=== PATIENT | female | born 1980 | race Caucasian/White ===

== ENCOUNTER 2016-04-28 15:06 | Emergency (ER) | payer OTHER ==
[~2016-04-28] VITALS: Ht 160 cm; Wt 99.8 kg
[~2016-04-28 15:06] MED LIST: CELE100C PO; CIPR500T94 PO; CYCL10TA2 PO; HYDR-2762 PO; HYDR-971 PO; METH4TAB2 PO; PREG75CA PO; PROAIR HFA8.5 GM IH; TRAM50TA PO
[2016-04-28] MEDS ORDERED: IV NORMAL SALINE 1000ML BAG 1,000 ML IV SCH (15:38)
[2016-04-28] MEDS ORDERED: ONDANSETRON PF 4 MG/2 ML VIAL. IV ONE (15:45)
[2016-04-28] MEDS ORDERED: FENTANYL PF 100 MCG/2 ML VIAL. IV ONE (15:45)
--- NOTE | 2016-04-28 15:45 | PHYS DOC ---
Past Medical History Past Medical History: Arthritis, Asthma, Fibromyalgia, Migraines Additional Past Medical Histor: INFLAMMATION OF CHEST [place],OSTEOARTHRITIS, LESIONS ON BRAIN, Occipital neur Past Surgical History: Cholecystectomy, Hysterectomy Alcohol Use: None Drug Use: None Adult General Chief Complaint Chief Complaint: NAUSEA/VOMITING/DIARRHA HPI HPI Patient is a 36 year old female that presents with fever, abdominal pain, n/v, low back pain since 0530 today. Denies urinary symptoms, cough, bodyaches, headache. Review of Systems Review of Systems Constitutional: Fever today Eyes: Denies change in visual acuity, redness, or eye pain HENT: Denies nasal congestion or sore throat Respiratory: Denies cough or shortness of breath Cardiovascular: No additional information not addressed in HPI GI: Abdominal pain, n/v/d today. No blood : Denies dysuria or hematuria Musculoskeletal: Denies or joint pain. Low back pain Integument: Denies rash or skin lesions Neurologic: Denies headache, focal weakness or sensory changes Endocrine: Denies polyuria or polydipsia [] Current Medications Current Medications Current Medications Medications (Trade) Dose Ordered Sig/Bill Start Time Stop Time Status Last Admin Dose Admin Acetaminophen (Tylenol) 650 mg 1X ONCE 04/28/16 18:45 04/28/16 18:46 DC 04/28/16 18:42 650 MG Fentanyl Citrate (Fentanyl 2ml Vial) 50 mcg 1X ONCE 04/28/16 15:45 04/28/16 15:46 DC 04/28/16 16:02 50 MCG Info (Do NOT chart on this entry -- for MONITORING) 1 each PRN DAILY PRN 04/28/16 16:15 04/28/16 19:09 DC Iohexol (Omnipaque 300 Mg/ml) 75 ml 1X ONCE 04/28/16 16:15 04/28/16 16:16 DC 04/28/16 16:17 75 ML Ondansetron HCl (Zofran) 4 mg 1X ONCE 04/28/16 15:45 04/28/16 15:46 DC 04/28/16 16:00 4 MG Sodium Chloride (Iv Sodium Chloride 0.9% 1000ml Bag) 1,000 ml @ 1,000 mls/hr Q1H 04/28/16 15:38 04/28/16 16:37 DC 04/28/16 15:56 1,000 MLS/HR Allergies Allergies Allergies Coded Allergies Type Severity Reaction Last Updated Verified erythromycin base Allergy Intermediate HIVES 04/10/15 Yes latex Allergy Intermediate SEE COMMENT 04/10/15 Yes talc Allergy Intermediate RED SPOTS 07/27/15 Yes ibuprofen Adverse Reaction Intermediate VOMITING 04/10/15 Yes meperidine Adverse Reaction Intermediate VOMITING 04/10/15 Yes morphine Adverse Reaction Intermediate VOMITING 04/10/15 Yes Physical Exam Physical Exam Constitutional: Well developed, well nourished, no acute distress, non-toxic appearance. HENT: Normocephalic, atraumatic, bilateral external ears normal, oropharynx moist, no oral exudates, nose normal. Eyes: PERRLA, EOMI, conjunctiva normal, no discharge. Neck: Normal range of motion, no tenderness, supple, no stridor. Cardiovascular:Heart rate regular rhythm, no murmur Lungs & Thorax: Bilateral breath sounds clear to auscultation Abdomen: Bowel sounds normal, soft, no masses, no pulsatile masses. Diffuse tenderness Skin: Warm, dry, no erythema, no rash. Back: Bilateral CVA tenderness Extremities: No tenderness, no cyanosis, no clubbing, ROM intact, no edema. Neurologic: Alert and oriented X 3, normal motor function, normal sensory function, no focal deficits noted. Psychologic: Affect normal, judgement normal, mood normal. [] Current Patient Data Vital Signs Vital Signs Date Time Temp Pulse Resp B/P Pulse Ox O2 Delivery O2 Flow Rate FiO2 04/28/16 18:16 101.0 101.0 04/28/16 18:15 112 16 122/61 93 Room Air Lab Values Laboratory Tests Test 04/28/16 15:35 04/28/16 16:10 04/28/16 17:00 White Blood Count 15.5x10^3/uL (4.0-11.0) H Red Blood Count 5.34x10^6/uL (3.50-5.40) Hemoglobin 14.8g/dL (12.0-15.5) Hematocrit 43.6% (36.0-47.0) Mean Corpuscular Volume 82fL (79-100) Mean Corpuscular Hemoglobin 28pg (25-35) Mean Corpuscular Hemoglobin Concent 34g/dL (31-37) Red Cell Distribution Width 14.1% (11.5-14.5) Platelet Count 276x10^3/uL (140-400) Neutrophils (%) (Auto) 88% (31-73) H Lymphocytes (%) (Auto) 6% (24-48) L Monocytes (%) (Auto) 5% (0-9) Eosinophils (%) (Auto) 0% (0-3) Basophils (%) (Auto) 0% (0-3) Neutrophils # (Auto) 13.6x10^3uL (1.8-7.7) H Lymphocytes # (Auto) 1.0x10^3/uL (1.0-4.8) Monocytes # (Auto) 0.8x10^3/uL (0.0-1.1) Eosinophils # (Auto) 0.0x10^3/uL (0.0-0.7) Basophils # (Auto) 0.1x10^3/uL (0.0-0.2) Segmented Neutrophils % 80% (35-66) H Band Neutrophils % 8% (0-9) Lymphocytes % 9% (24-48) L Monocytes % 3% (0-10) Toxic Granulation Slight Toxic Vacuolation Slight Platelet Estimate Adequate (ADEQUATE) Sodium Level 139mmol/L (136-145) Potassium Level 4.1mmol/L (3.5-5.1) Chloride Level 100mmol/L (98-107) Carbon Dioxide Level 29mmol/L (21-32) Anion Gap 10 (6-14) Blood Urea Nitrogen 11mg/dL (7-20) Creatinine 0.8mg/dL (0.6-1.0) Estimated GFR (Cockcroft-Gault) 80.3 BUN/Creatinine Ratio 14 (6-20) Glucose Level 121mg/dL (70-99) H Calcium Level 8.8mg/dL (8.5-10.1) Total Bilirubin 0.7mg/dL (0.2-1.0) Aspartate Amino Transferase (AST) 23U/L (15-37) Alanine Aminotransferase (ALT) 21U/L (14-59) Alkaline Phosphatase 107U/L (46-116) Total Protein 7.5g/dL (6.4-8.2) Albumin 3.5g/dL (3.4-5.0) Albumin/Globulin Ratio 0.9 (1.0-1.7) L Lipase 156U/L (73-393) Urine Collection Type Unknown Urine Color Teresa Urine Clarity Cloudy Urine pH 6.0 Urine Specific [place] >=1.030 Urine Protein 30mg/dL (NEG-TRACE) Urine Glucose (UA) Negativemg/dL (NEG) Urine Ketones (Stick) Tracemg/dL (NEG) Urine Blood Negative (NEG) Urine Nitrite Negative (NEG) Urine Bilirubin Small (NEG) Urine Urobilinogen Dipstick 1.0mg/dL (0.2 mg/dL) Urine Leukocyte Esterase Negative (NEG) Urine RBC 0/HPF (0-2) Urine WBC 0/HPF (0-4) Urine Amorphous Sediment Present/HPF Urine Bacteria 0/HPF (0-FEW) Urine Mucus Marked/LPF Influenza Type A Antigen Negative (NEGATIVE) Influenza Type B Antigen Negative (NEGATIVE) Laboratory Tests 04/28/16 15:35 Laboratory Tests 04/28/16 15:35 EKG EKG [] Radiology/Procedures Radiology/Procedures [] Impressions: 1. abdominal pain 2. vomiting and diarrhea Course & Med Decision Making Course & Med Decision Making Pertinent Labs and Imaging studies reviewed. (See chart for details) Labs, CT, UA reviewed and unremarkable. Without vomiting or diarrhea since arrival. Tolerating po fluids. Spoke with patient at length regarding plan of care and return precautions and she agreed and requests work note Dragon Disclaimer [place] Disclaimer This electronic medical record was generated, in whole or in part, using a voice recognition dictation system. Departure Departure Impression: Primary Impression: Abdominal pain Additional Impression: Vomiting and diarrhea Disposition: 01 HOME, SELF-CARE Condition: STABLE Referrals: CATALINA VYAS MD (PCP) Patient Instructions: Abdominal Pain (Nonspecific), Viral Syndrome, Vomiting and Diarrhea, Child 1 Year and Older Additional Instructions: Take medication as prescribed. Return if problems or concerns. Follow up with primary doctor in 1-2 days Scripts Ondansetron (Zofran Odt)4 Mg Tab.rapdis1 Tab SL Q8HRS #10 TAB Prov:ALONZO BLANCHARD APRN 04/28/16 Problem Qualifiers ALONZO BLANCHARD APRN Apr 28, 2016 15:45
[2016-04-28 16:02] LABS: BASO # 0.1 x10^3/uL (0.0-0.2); BASO % 0 % (0-3); CALCIUM 8.8 mg/dL (8.5-10.1); CREATININE 0.8 mg/dL (0.6-1.0); EOS % 0 % (0-3); GFR 80.3; HEMATOCRIT 43.6 % (36.0-47.0); HEMOGLOBIN 14.8 g/dL (12.0-15.5); LYMPH % 6 % (24-48); MEAN CORPUSCULAR HEMOGLOBIN 28 pg (25-35); MEAN CORPUSCULAR HGB CONC 34 g/dL (31-37); MEAN CORPUSCULAR VOLUME 82 fL (79-100); MONO % 5 % (0-9); NEUT % 88 % (31-73); PLATELET COUNT 276 x10^3/uL (140-400); POTASSIUM 4.1 mmol/L (3.5-5.1); RED BLOOD COUNT 5.34 x10^6/uL (3.50-5.40); RED CELL DISTRIBUTION WIDTH 14.1 % (11.5-14.5); WHITE BLOOD COUNT 15.5 x10^3/uL (4.0-11.0)
[2016-04-28 16:08] LABS: ALBUMIN 3.5 g/dL (3.4-5.0); ALBUMIN/GLOBULIN RATIO 0.9 (1.0-1.7); TOTAL BILIRUBIN 0.7 mg/dL (0.2-1.0); TOTAL PROTEIN 7.5 g/dL (6.4-8.2)
[2016-04-28] MEDS ORDERED: IOHEXOL 300 MG/ML 75 ML VIAL IV ONE (16:15)
[2016-04-28] MEDS ORDERED: CONTRAST GIVEN MC PRN (16:15)
[2016-04-28 16:26] LABS: BILIRUBIN,URINE SMALL (NEG); GLUCOSE,URINE NEGATIVE (NEG); NITRITE,URINE NEGATIVE (NEG); PROTEIN,URINE 30 mg/dL (NEG-TRACE)
--- NOTE | 2016-04-28 16:43 | RAD ---
Exam performed: CT scan of the abdomen and pelvis with contrast Clinical Indication:Diffuse abdominal pain today nausea and vomiting since this morning Date of Service:04/28/16 CT abdomen pelvis from 04/09/15 Technique: Contiguous helical acquisitions are obtained from the lung bases to the pelvis during intravenous administration of 75 mL of Omnipaque 300. Sagittal and coronal reformatted images were obtained and reviewed. CT abdomen findings: The lung bases appear essentially clear. Visualized heart is normal. The liver, spleen and pancreas appears unremarkable. Cholecystectomy Both adrenal glands and bilateral kidneys appear normal with symmetric excretion of contrast via both kidneys. The small bowel loops appear mildly prominent. Aorta is normal in caliber. Occasional subcentimeter retroperitoneal lymph nodes are seen No bowel related inflammatory stranding is noted. Appendix is normal. No obvious stranding is seen in the pericecal region. CT pelvis findings: The pelvic bowel loops are nondilated and unremarkable. The urinary bladder is decompressed. Interrogation of bone windows demonstrates no obvious bony abnormality. Sagittal and coronal reformatted images were obtained and reviewed which demonstrate no additional findings. Impression abdomen and pelvis : 1. No acute intra-abdominal or pelvic process is detected. Mildly prominent small bowel loops may be related to mild ileus pattern secondary to vomiting . 2.No evidence of acute appendicitis seen. PQRS Compliance Statement: One or more of the following individualized dose reduction techniques were utilized for this examination: 1. Automated exposure control 2. Adjustment of the mA and/or kV according to patient size 3. Use of iterative reconstruction technique
[2016-04-28 17:04] LABS: BACTERIA,URINE 0 /HPF (0-FEW); RBC,URINE 0 /HPF (0-2); WBC,URINE 0 /HPF (0-4)
[2016-04-28 17:33] LABS: OBC FLU VALID
[2016-04-28 18:15] VITALS: BP 122/61
[2016-04-28 18:15] LABS: PLT ESTIMATE ADEQUATE (ADEQUATE); TOXIC GRANULATION SLIGHT; TOXIC VACUOLATION SLIGHT
[2016-04-28] MEDS ORDERED: ONDA4TAB10 SL (18:34)
[2016-04-28] MEDS ORDERED: ACETAMINOPHEN 325 MG TABLET. PO ONE (18:45)
== END 2016-04-28 19:00 | disposition home or self-care (01) ==
LOC: ER 15:06
DX: R10.9 Unspecified abdominal pain (principal); R11.10 Vomiting, unspecified; R19.7 Diarrhea, unspecified; M19.90 Unspecified osteoarthritis, unspecified site; J45.909 Unspecified asthma, uncomplicated; M79.7 Fibromyalgia; Z90.49 Acquired absence of other specified parts of digestive tract; Z90.710 Acquired absence of both cervix and uterus; Z88.1 Allergy status to other antibiotic agents; Z88.5 Allergy status to narcotic agent; Z88.6 Allergy status to analgesic agent; Z91.040 Latex allergy status; Z91.048 Other nonmedicinal substance allergy status
CPT/HCPCS: 36415; 74177; 80053; 81001; 83690; 85007; 85027; 87804; 96361; 96374; 96375; 99285; J2405; J3010; J7030; Q9967

== ENCOUNTER 2016-06-04 15:15 | Emergency (ER) | payer OTHER ==
[~2016-06-04] VITALS: Ht 160 cm; Wt 99.8 kg
[~2016-06-04 15:15] MED LIST changes: +ONDA4TAB10 SL
[2016-06-04] MEDS ORDERED: ASPIRIN 81 MG TAB.CHEW PO ONE (16:00)
--- NOTE | 2016-06-04 16:01 | EKG ---
[facility] [address] [place] [address] Test Date: 2016-06-04 Test Time: 15:29:34 Pat Name: KANG CH Department: Room: Gender: F Computer Operations Analyst: : 1980 Requested By: AJAY MORAN Order Number: [id number] Reading MD: Measurements Intervals [place] Rate: 89 P: 0 SC: 162 QRS: 15 QRSD: 84 T: 20 QT: 356 QTc: 440 Interpretive Statements SINUS RHYTHM RI6.01 Unconfirmed report No previous ECG available for comparison
[2016-06-04 16:02] LABS: BASO % 1 % (0-3); EOS % 2 % (0-3); HEMATOCRIT 41.9 % (36.0-47.0); HEMOGLOBIN 13.9 g/dL (12.0-15.5); LYMPH # 2.2 x10^3/uL (1.0-4.8); LYMPH % 26 % (24-48); MEAN CORPUSCULAR HEMOGLOBIN 27 pg (25-35); MEAN CORPUSCULAR HGB CONC 33 g/dL (31-37); MEAN CORPUSCULAR VOLUME 82 fL (79-100); MONO % 7 % (0-9); NEUT % 65 % (31-73); PLATELET COUNT 285 x10^3/uL (140-400); RED BLOOD COUNT 5.12 x10^6/uL (3.50-5.40); RED CELL DISTRIBUTION WIDTH 14.5 % (11.5-14.5); WHITE BLOOD COUNT 8.5 x10^3/uL (4.0-11.0)
--- NOTE | 2016-06-04 16:07 | RAD ---
EXAM: Chest one view. HISTORY: Chest pain. COMPARISON: 07/26/2015. FINDINGS: A frontal view of the chest is obtained. There are no confluent infiltrates. There is a calcified granuloma in the left base. There is no pneumothorax or pleural effusion. The heart is not enlarged. IMPRESSION: 1. No confluent infiltrates.
[2016-06-04 16:17] LABS: ANION GAP 12 (6-14); BLOOD UREA NITROGEN 13 mg/dL (7-20); CALCIUM 8.8 mg/dL (8.5-10.1); CARBON DIOXIDE 29 mmol/L (21-32); CHLORIDE 102 mmol/L (98-107); CREATININE 0.9 mg/dL (0.6-1.0); GFR 70.1; GLUCOSE 111 mg/dL (70-99); POTASSIUM 3.4 mmol/L (3.5-5.1); SODIUM 143 mmol/L (136-145)
[2016-06-04 16:23] LABS: ALBUMIN 3.2 g/dL (3.4-5.0); ALK PHOS 108 U/L (46-116); ALT (SGPT) 31 U/L (14-59); AST (SGOT) 22 U/L (15-37); DIRECT BILIRUBIN < 0.1 mg/dL (0.0-0.2); TOTAL BILIRUBIN 0.3 mg/dL (0.2-1.0); TOTAL PROTEIN 7.3 g/dL (6.4-8.2)
[2016-06-04] MEDS: NITROGLYCERIN SUBLINGUAL 0.4 MG BOTTLE OF 25. SL PRN ×2 (16:47→17:02)
--- NOTE | 2016-06-04 16:53 | PHYS DOC ---
Past Medical History Past Medical History: Arthritis, Asthma, Fibromyalgia, Migraines Additional Past Medical Histor: INFLAMMATION OF CHEST [place],OSTEOARTHRITIS, LESIONS ON BRAIN, Occipital neur Past Surgical History: Cholecystectomy, Hysterectomy Alcohol Use: None Drug Use: None Adult General Chief Complaint Chief Complaint: CHEST PAIN HPI HPI 28-year-old female presenting to the emergency department today with sharp shooting chest pain that radiates to both shoulder blades. Nothing makes it worse or better. It is been present since yesterday afternoon around 4:00. She is taking hydrocodone with mild relief. The pain is moderate and mildly alleviated by hydrocodone. She denies nausea vomiting diaphoresis. She denies hypertension hyperlipidemia high cholesterol. She has a history of a cholecystectomy and hysterectomy. Review of systems is negative for abdominal pain nausea vomiting diaphoresis. All other review of systems is negative unless otherwise noted in history of present illness. Review of Systems Review of Systems SEE ABOVE. Current Medications Current Medications Current Medications Medications (Trade) Dose Ordered Sig/Bill Start Time Stop Time Status Last Admin Dose Admin Aspirin (Children'S Aspirin) 324 mg 1X ONCE 06/04/16 16:00 06/04/16 16:01 DC 06/04/16 16:46 324 MG Fentanyl Citrate (Fentanyl 2ml Vial) 100 mcg STK-MED ONCE 06/04/16 17:43 06/04/16 17:44 DC Iohexol (Omnipaque 350 Mg/ml) 90 ml 1X ONCE 06/04/16 17:15 06/04/16 17:16 DC 06/04/16 17:15 90 ML Multi-Ingredient Mouthwash/Gargle (Gi Cocktail Single Dose) 15 ml 1X ONCE 06/04/16 18:00 06/04/16 18:01 DC Nitroglycerin (Nitrostat) 0.4 mg PRN Q5MIN PRN 06/04/16 16:00 06/04/16 17:02 0.4 MG Allergies Allergies Allergies Coded Allergies Type Severity Reaction Last Updated Verified erythromycin base Allergy Intermediate HIVES 04/10/15 Yes latex Allergy Intermediate SEE COMMENT 04/10/15 Yes talc Allergy Intermediate RED SPOTS 07/27/15 Yes ibuprofen Adverse Reaction Intermediate VOMITING 04/10/15 Yes meperidine Adverse Reaction Intermediate VOMITING 04/10/15 Yes morphine Adverse Reaction Intermediate VOMITING 04/10/15 Yes Physical Exam Physical Exam Constitutional: Well developed, well nourished, no acute distress, non-toxic appearance. HENT: Normocephalic, atraumatic, bilateral external ears normal, oropharynx moist, no oral exudates, nose normal. [] Eyes: PERRLA, EOMI, conjunctiva normal, no discharge. Neck: Normal range of motion, no tenderness, supple, no stridor. [] Cardiovascular:Heart rate regular rhythm, no murmur [] Lungs & Thorax: Bilateral breath sounds clear to auscultation Abdomen: Bowel sounds normal, soft, no tenderness, no masses, no pulsatile masses. [] Skin: Warm, dry, no erythema, no rash. Back: No tenderness, no CVA tenderness. [] Extremities: No tenderness, no cyanosis, no clubbing, ROM intact, no edema. [] Neurologic: Alert and oriented X 3, normal motor function, normal sensory function, no focal deficits noted. Psychologic: Affect normal, judgement normal, mood normal. [] Current Patient Data Vital Signs Vital Signs Date Time Temp Pulse Resp B/P Pulse Ox O2 Delivery O2 Flow Rate FiO2 06/04/16 17:46 22 06/04/16 17:02 89 153/85 06/04/16 16:25 97 Room Air 06/04/16 15:28 98.9 98.9 Lab Values Laboratory Tests Test 06/04/16 15:35 White Blood Count 8.5x10^3/uL (4.0-11.0) Red Blood Count 5.12x10^6/uL (3.50-5.40) Hemoglobin 13.9g/dL (12.0-15.5) Hematocrit 41.9% (36.0-47.0) Mean Corpuscular Volume 82fL (79-100) Mean Corpuscular Hemoglobin 27pg (25-35) Mean Corpuscular Hemoglobin Concent 33g/dL (31-37) Red Cell Distribution Width 14.5% (11.5-14.5) Platelet Count 285x10^3/uL (140-400) Neutrophils (%) (Auto) 65% (31-73) Lymphocytes (%) (Auto) 26% (24-48) Monocytes (%) (Auto) 7% (0-9) Eosinophils (%) (Auto) 2% (0-3) Basophils (%) (Auto) 1% (0-3) Neutrophils # (Auto) 5.5x10^3uL (1.8-7.7) Lymphocytes # (Auto) 2.2x10^3/uL (1.0-4.8) Monocytes # (Auto) 0.6x10^3/uL (0.0-1.1) Eosinophils # (Auto) 0.2x10^3/uL (0.0-0.7) Basophils # (Auto) 0.0x10^3/uL (0.0-0.2) Sodium Level 143mmol/L (136-145) Potassium Level 3.4mmol/L (3.5-5.1) L Chloride Level 102mmol/L (98-107) Carbon Dioxide Level 29mmol/L (21-32) Anion Gap 12 (6-14) Blood Urea Nitrogen 13mg/dL (7-20) Creatinine 0.9mg/dL (0.6-1.0) Estimated GFR (Cockcroft-Gault) 70.1 Glucose Level 111mg/dL (70-99) H Calcium Level 8.8mg/dL (8.5-10.1) Total Bilirubin 0.3mg/dL (0.2-1.0) Direct Bilirubin < 0.1mg/dL (0.0-0.2) Aspartate Amino Transferase (AST) 22U/L (15-37) Alanine Aminotransferase (ALT) 31U/L (14-59) Alkaline Phosphatase 108U/L (46-116) Troponin I Quantitative < 0.017ng/mL (0.000-0.055) GL-Pmq-I-Type Natriuretic Peptide 88pg/mL (0-124) Total Protein 7.3g/dL (6.4-8.2) Albumin 3.2g/dL (3.4-5.0) L Lipase 144U/L (73-393) Laboratory Tests 06/04/16 15:35 Laboratory Tests 06/04/16 15:35 EKG EKG []EKG shows sinus rhythm with regular rate. Normal intervals. Normal axis. ST segments are congruent. Not suggestive of ACS. Reviewed by myself. Radiology/Procedures Radiology/Procedures [] Course & Med Decision Making Course & Med Decision Making Pertinent Labs and Imaging studies reviewed. (See chart for details) [] 28-year-old female presenting the emergency department with chest pain. Vital signs afebrile with mild tachycardia. Hypertension present. Pertinent physical exam. Normal physical exam. EKG unremarkable. Blood work obtained which was unremarkable other than potassium at the lower end of the reference range. Otherwise troponin negative. Pain and been present for greater than 6 hours. Heart score of 0. Because of the way the patient describes pain and angiogram of the aorta was obtained. Negative for aortic dissection. The patient was subsequent discharged home to follow up with her doctor over the next few days if her symptoms continued. Dragon Disclaimer Dragon Disclaimer This electronic medical record was generated, in whole or in part, using a voice recognition dictation system. Departure Departure Impression: Primary Impression: Chest pain Disposition: HOME, SELF-CARE Condition: STABLE Referrals: RAFAEL BENAVIDES (PCP) Patient Instructions: Chest Pain (Nonspecific) Additional Instructions: Thank you for allowing us to participate in your care today. Followup with your primary care physician in 3 days if your symptoms do not improve. If you do not have a primary care provider you can ask for a list of our primary care providers. Return to the emergency department you have any new or concerning findings. This should be evaluated by the primary care physician and any necessary consulting services for continued management within a few days after discharge. Return to emergency room if you have any new or concerning symptoms including but not limited to fever, chills, nausea, vomiting, intractable pain, any new rashes, chest pain, shortness of air, uncontrolled bleeding, difficulty breathing, and/or vision loss. AJAY MORAN MD Jun 04, 2016 16:53
[2016-06-04 17:02] VITALS: BP 153/85
[2016-06-04] MEDS ORDERED: IOHEXOL 350 MG/ML 100ML VIAL. IV ONE (17:15)
[2016-06-04] MEDS ORDERED: FENTANYL PF 100 MCG/2 ML VIAL. ONE (17:43)
[2016-06-04] MEDS: FENTANYL PF 100 MCG/2 ML VIAL. IV PRN ×2 (17:46→18:27)
--- NOTE | 2016-06-04 17:54 | RAD ---
INDICATION: 36-year-old female with chest pain radiating to the back for 24 hours, evaluate for aortic dissection. COMPARISON: May 22, 2010 TECHNIQUE: Axial CT images obtained through the chest following the intravenous administration of 90 cc of Omni 350, utilizing an angiogram protocol. 3D images processed per protocol. One or more of the following individualized dose reduction techniques were utilized for this examination: 1. Automated exposure control; 2. Adjustment of the mA and/or kV according to patient size; 3. Use of iterative reconstruction technique. FINDINGS: The aorta is normal in caliber, without evidence of acute injury. There is some motion artifact through the ascending aorta. The heart is normal in size without pericardial effusion. No significant mediastinal or hilar lymphadenopathy is seen. There is no focal consolidation, pleural effusion or pneumothorax. A calcified granuloma with adjacent subcentimeter, noncalcified nodules are stable from 2010. Adjacent atelectasis is present in the left lower lobe. The central airways appear patent. The visualized osseous structures and overlying soft tissues demonstrate no acute or suspicious finding. The visualized abdomen demonstrates no acute finding. IMPRESSION: No acute aortic injury or other acute cardiopulmonary process. Electronically signed by: Gisella Weiss (Jun 04, 2016 17:53:00)
[2016-06-04] MEDS ORDERED: LIDO:MAALOX:DONNATAL 1:1:1 15 ML SINGLE DOSE SWSW ONE (18:00)
== END 2016-06-04 18:42 | disposition home or self-care (01) ==
LOC: ER 15:15
DX: R07.89 Other chest pain (principal); R00.0 Tachycardia, unspecified; I10 Essential (primary) hypertension; M19.90 Unspecified osteoarthritis, unspecified site; J45.909 Unspecified asthma, uncomplicated; M79.7 Fibromyalgia; G43.909 Migraine, unspecified, not intractable, without status migrainosus; Z88.5 Allergy status to narcotic agent; Z88.8 Allergy status to other drugs, medicaments and biological substances; Z88.6 Allergy status to analgesic agent; Z88.1 Allergy status to other antibiotic agents; Z91.040 Latex allergy status
CPT/HCPCS: 36415; 71010; 71275; 80048; 80076; 83690; 83880; 84484; 85027; 93005; 96374; 96376; 99285; J3010; Q9967

== ENCOUNTER 2016-06-23 14:18 | Emergency (ER) | payer OTHER ==
[~2016-06-23] VITALS: Ht 160 cm; Wt 113.4 kg
[2016-06-23 14:23] VITALS: BP 126/77
--- NOTE | 2016-06-23 14:58 | RAD ---
Indication chest pain. PA and lateral views of the chest were obtained and are compared to a single view examination 19 days earlier. Note is additionally made of a CT examination of the chest 06/04/2016 The heart and pulmonary vessels are normal. The mediastinum has a normal appearance. The lungs are clear. There is no pleural fluid or pneumothorax. IMPRESSION: No acute finding apparent in the chest
[2016-06-23] MEDS ORDERED: ACETAMINOPHEN 500 MG TABLET PO ONE (15:00)
--- NOTE | 2016-06-23 15:00 | PHYS DOC ---
Past Medical History Past Medical History: Arthritis, Asthma, Fibromyalgia, Migraines Additional Past Medical Histor: INFLAMMATION OF CHEST [place],OSTEOARTHRITIS, LESIONS ON BRAIN, Occipital neur Past Surgical History: Cholecystectomy, Hysterectomy Alcohol Use: None Drug Use: None Adult General Chief Complaint Chief Complaint: FLU SYMPTOM HPI HPI Patient is a 36 year old female with history of asthma, fibromyalgia, migraine headaches who presents today with a productive cough for 3 days. Patient also stated she had a fever of102 this morning. Review of Systems Review of Systems Constitutional: fever Eyes: Denies change in visual acuity, redness, or eye pain [] HENT: Denies nasal congestion or sore throat [] Respiratory: cough Cardiovascular: No additional information not addressed in HPI [] GI: Denies abdominal pain, nausea, vomiting, bloody stools or diarrhea [] : Denies dysuria or hematuria [] Musculoskeletal: Denies back pain or joint pain [] Integument: Denies rash or skin lesions [] Neurologic: Denies headache, focal weakness or sensory changes [] Endocrine: Denies polyuria or polydipsia [] Current Medications Current Medications Current Medications Medications (Trade) Dose Ordered Sig/Bill Start Time Stop Time Status Last Admin Dose Admin Acetaminophen (Tylenol) 1,000 mg 1X ONCE 06/23/16 15:00 06/23/16 15:01 DC 06/23/16 14:59 1,000 MG Allergies Allergies Allergies Coded Allergies Type Severity Reaction Last Updated Verified erythromycin base Allergy Intermediate HIVES 04/10/15 Yes latex Allergy Intermediate SEE COMMENT 04/10/15 Yes talc Allergy Intermediate RED SPOTS 07/27/15 Yes ibuprofen Adverse Reaction Intermediate VOMITING 04/10/15 Yes meperidine Adverse Reaction Intermediate VOMITING 04/10/15 Yes morphine Adverse Reaction Intermediate VOMITING 04/10/15 Yes Physical Exam Physical Exam Constitutional: Well developed, well nourished, no acute distress, non-toxic appearance. [] HENT: Normocephalic, atraumatic, bilateral external ears normal, oropharynx moist, no oral exudates, nose normal. [] Eyes: PERRLA, EOMI, conjunctiva normal, no discharge. [] Neck: Normal range of motion, no tenderness, supple, no stridor. [] Cardiovascular:Heart rate regular rhythm, no murmur [] Lungs & Thorax: Bilateral breath sounds clear to auscultation [] Abdomen: Bowel sounds normal, soft, no tenderness, no masses, no pulsatile masses. [] Skin: Warm, dry, no erythema, no rash. [] Back: No tenderness, no CVA tenderness. [] Extremities: No tenderness, no cyanosis, no clubbing, ROM intact, no edema. [] Neurologic: Alert and oriented X 3, normal motor function, normal sensory function, no focal deficits noted. [] Psychologic: Affect normal, judgement normal, mood normal. [] Current Patient Data Vital Signs Vital Signs Date Time Temp Pulse Resp B/P Pulse Ox O2 Delivery O2 Flow Rate FiO2 06/23/16 14:23 99.5 106 20 95 Room Air 99.5 Lab Values Laboratory Tests Test 06/23/16 14:48 Influenza Type A Antigen Negative (NEGATIVE) Influenza Type B Antigen Negative (NEGATIVE) EKG EKG [] Radiology/Procedures Radiology/Procedures [] Course & Med Decision Making Course & Med Decision Making Pertinent Labs and Imaging studies reviewed. (See chart for details) Patient is in the ED with complaints of fever and productive cough for 3 days. Temperature in arrival was 99.5. She was given Tylenol 1 g. Chest x-ray interpreted by radiologist as negative for any acute findings. Negative rapid strep, negative influenza B. Patient's symptoms are probably viral. Discharged with instructions to take Tylenol every 4 hours as needed for pain or fever. Instructed to push fluids maintain good hand hygiene. Follow-up with her own PCP in 3-7 days. Instructed to return to the ED if symptoms worsen. Dragon Disclaimer Dragon Disclaimer This electronic medical record was generated, in whole or in part, using a voice recognition dictation system. Departure Departure Impression: Primary Impression: Upper respiratory infection Additional Impressions: Fever Acute bronchitis Disposition: 01 HOME, SELF-CARE Condition: STABLE Referrals: RAFAEL BENAVIDES (PCP) Follow-up with your own doctor in 3-7 days Patient Instructions: Acute Bronchitis, Fever, Adult, Upper Respiratory Infection, Adult Additional Instructions: You were seen with symptoms consistent with an upper respiratory infection viral illness. Take Tylenol every 4 hours as needed for febrile pain. You can take [id number] cold and cough medicines. Follow-up with your primary care doctor in 3-7 days. Come back to the ED if symptoms worsen. Scripts D-Methorphan/Acetamin/Doxylamn (Coricidin Hbp Cold-Multi Sympt)355 Ml Liquid5 Ml PO Q6HRS PRN COUGH #355 LIQUID Prov:ARASELI SIM SANKET 06/23/16 Prednisone 50 Mg Tablet1 Tab PO DAILY #5 TAB Prov:ARASELI SIM SANKET 06/23/16 Benzonatate (Tessalon Perle)100 Mg Capsule1 Cap PO TID #30 CAP Prov:ARASELI SIM SANKET 06/23/16 Albuterol Sulfate (Proair Respiclick)90 Mcg Aer.pow.ba1 Puff IH PRN Q6HRS PRN SHORTNESS OF BREATH #1 INHALER Prov:ARASELI SIM SAP TECHNICAL DEVELOPER 06/23/16 Problem Qualifiers Primary Impression: Upper respiratory infection URI type: unspecified URI Qualified Code: J06.9 - Acute upper respiratory infection, unspecified Additional Impressions: Fever Fever type: unspecified Qualified Code: R50.9 - Fever, unspecified Acute bronchitis Bronchitis organism: unspecified organism Qualified Code: J20.9 - Acute bronchitis, unspecified ARASELI SIM SANKET Jun 23, 2016 15:00
[2016-06-23 15:21] LABS: OBC FLU VALID
[2016-06-23] MEDS ORDERED: D ME PO (15:33)
[2016-06-23] MEDS ORDERED: PROAIR RESPICL90 MCG IH (15:33)
[2016-06-23] MEDS ORDERED: PRED50TA PO (15:33)
[2016-06-23] MEDS ORDERED: BENZ100C PO (15:33)
[2016-06-24 07:49] LABS: NEGATIVE OBC STREP NEG; POSITIVE OBC STREP POS
== END 2016-06-23 15:40 | disposition home or self-care (01) ==
LOC: ER 14:18
DX: J20.9 Acute bronchitis, unspecified (principal); J06.9 Acute upper respiratory infection, unspecified; J45.909 Unspecified asthma, uncomplicated; G43.909 Migraine, unspecified, not intractable, without status migrainosus; M79.7 Fibromyalgia; M19.90 Unspecified osteoarthritis, unspecified site; Z90.710 Acquired absence of both cervix and uterus; Z90.49 Acquired absence of other specified parts of digestive tract; Z88.1 Allergy status to other antibiotic agents; Z88.6 Allergy status to analgesic agent; Z91.040 Latex allergy status; Z88.5 Allergy status to narcotic agent; Z91.048 Other nonmedicinal substance allergy status
CPT/HCPCS: 71020; 87070; 87804; 87880; 99285-25

== ENCOUNTER 2016-08-04 17:43 | Emergency (ER) | payer OTHER ==
[~2016-08-04] VITALS: Ht 160 cm; Wt 108.9 kg
[~2016-08-04 17:43] MED LIST changes: +BENZ100C PO; +D ME PO; +PRED50TA PO; +PROAIR RESPICL90 MCG IH
[2016-08-04 18:36] VITALS: BP 191/113
[2016-08-04] MEDS ORDERED: CYCLOBENZAPRINE 10 MG TABLET. PO ONE (19:00)
[2016-08-04] MEDS ORDERED: methylPREDNISolone SOD SUCC PF 125 MG/2 ML VIAL. IM ONE (19:00)
--- NOTE | 2016-08-04 19:13 | PHYS DOC ---
Past Medical History Past Medical History: Anxiety, Arthritis, Asthma, Depression, Fibromyalgia, Hypertension, Migraines Additional Past Medical Histor: INFLAMMATION OF CHEST [place],OSTEOARTHRITIS, LESIONS ON BRAIN, Occipital neur Past Surgical History: Cholecystectomy, Hysterectomy Alcohol Use: None Drug Use: None Adult General Chief Complaint Chief Complaint: BACK PAIN - NO INJURY HPI HPI Patient is a 36 year old female presents to the emergency department with a history of right upper back pain that radiates to the right breast. Patient states the pain is sharp and shooting in nature. She has taken [place] for the pain without relief noted. Patient with elevated BP here in the ED with patient stating that she took her medication this morning for HTN. Patient denies SOA, headache or blurred vision. Review of Systems Review of Systems Constitutional: Denies fever or chills [] Eyes: Denies change in visual acuity, redness, or eye pain [] HENT: Denies nasal congestion or sore throat [] Respiratory: Denies cough or shortness of breath [] Cardiovascular: No additional information not addressed in HPI [] GI: Denies abdominal pain, nausea, vomiting, bloody stools or diarrhea [] : Denies dysuria or hematuria [] Musculoskeletal: right upper back pain denies joint pain [] Integument: Denies rash or skin lesions [] Neurologic: Denies headache, focal weakness or sensory changes [] Endocrine: Denies polyuria or polydipsia [] Current Medications Current Medications Current Medications Medications (Trade) Dose Ordered Sig/Bill Start Time Stop Time Status Last Admin Dose Admin Cyclobenzaprine HCl (Flexeril) 10 mg 1X ONCE 08/04/16 19:00 08/04/16 19:01 DC 08/04/16 19:13 10 MG Methylprednisolone Sodium Succinate (Solu-Medrol 125mg Vial) 125 mg 1X ONCE 08/04/16 19:00 08/04/16 19:01 DC 08/04/16 19:14 125 MG Allergies Allergies Allergies Coded Allergies Type Severity Reaction Last Updated Verified erythromycin base Allergy Intermediate HIVES 04/10/15 Yes latex Allergy Intermediate SEE COMMENT 04/10/15 Yes talc Allergy Intermediate RED SPOTS 07/27/15 Yes ibuprofen Adverse Reaction Intermediate VOMITING 04/10/15 Yes meperidine Adverse Reaction Intermediate VOMITING 04/10/15 Yes morphine Adverse Reaction Intermediate VOMITING 04/10/15 Yes Physical Exam Physical Exam Constitutional: Well developed, well nourished, no acute distress, non-toxic appearance. [] HENT: Normocephalic, atraumatic, bilateral external ears normal, oropharynx moist, no oral exudates, nose normal. [] Eyes: PERRLA, EOMI, conjunctiva normal, no discharge. [] Neck: Normal range of motion, no tenderness, supple, no stridor. [] Cardiovascular:Heart rate regular rhythm, no murmur [] Lungs & Thorax: Bilateral breath sounds clear to auscultation [] Skin: Warm, dry, no erythema, no rash. [] Back: No cervical spine, thoracic spine or lumbar spine tenderness. Patient noted to have tenderness on the right upper back area. Extremities: No tenderness, no cyanosis, no clubbing, ROM intact, no edema. [] Neurologic: Alert and oriented X 3, normal motor function, normal sensory function, no focal deficits noted. [] Psychologic: Affect normal, judgement normal, mood normal. [] Current Patient Data Vital Signs Vital Signs Date Time Temp Pulse Resp B/P (MAP) Pulse Ox O2 Delivery O2 Flow Rate FiO2 08/04/16 18:36 98.1 88 20 96 Room Air 98.1 Lab Values Laboratory Tests Test 08/04/16 19:20 White Blood Count 9.9 x10^3/uL (4.0-11.0) Red Blood Count 5.30 x10^6/uL (3.50-5.40) Hemoglobin 14.8 g/dL (12.0-15.5) Hematocrit 42.9 % (36.0-47.0) Mean Corpuscular Volume 81 fL (79-100) Mean Corpuscular Hemoglobin 28 pg (25-35) Mean Corpuscular Hemoglobin Concent 34 g/dL (31-37) Red Cell Distribution Width 14.4 % (11.5-14.5) Platelet Count 328 x10^3/uL (140-400) Neutrophils (%) (Auto) 66 % (31-73) Lymphocytes (%) (Auto) 24 % (24-48) Monocytes (%) (Auto) 8 % (0-9) Eosinophils (%) (Auto) 2 % (0-3) Basophils (%) (Auto) 1 % (0-3) Neutrophils # (Auto) 6.5 x10^3uL (1.8-7.7) Lymphocytes # (Auto) 2.4 x10^3/uL (1.0-4.8) Monocytes # (Auto) 0.8 x10^3/uL (0.0-1.1) Eosinophils # (Auto) 0.2 x10^3/uL (0.0-0.7) Basophils # (Auto) 0.1 x10^3/uL (0.0-0.2) Sodium Level 137 mmol/L (136-145) Potassium Level 3.3 mmol/L (3.5-5.1) L Chloride Level 99 mmol/L (98-107) Carbon Dioxide Level 30 mmol/L (21-32) Anion Gap 8 (6-14) Blood Urea Nitrogen 9 mg/dL (7-20) Creatinine 0.9 mg/dL (0.6-1.0) Estimated GFR (Cockcroft-Gault) 70.1 BUN/Creatinine Ratio 10 (6-20) Glucose Level 103 mg/dL (70-99) H Calcium Level 9.3 mg/dL (8.5-10.1) Total Bilirubin 0.4 mg/dL (0.2-1.0) Aspartate Amino Transferase (AST) 18 U/L (15-37) Alanine Aminotransferase (ALT) 29 U/L (14-59) Alkaline Phosphatase 122 U/L (46-116) H Total Protein 8.1 g/dL (6.4-8.2) Albumin 3.6 g/dL (3.4-5.0) Albumin/Globulin Ratio 0.8 (1.0-1.7) L Laboratory Tests 08/04/16 19:20 Laboratory Tests 08/04/16 19:20 EKG EKG EKG completed with HR [address] Aggarwal.[] Radiology/Procedures Radiology/Procedures [] Course & Med Decision Making Course & Med Decision Making Pertinent Labs and Imaging studies reviewed. (See chart for details) Chest x-ray was negative, CMP CBC and troponin were negative. Patient will be discharged home in stable condition. EKG was negative as well. Patient will be recommended to continue to use home medications for pain and discomfort. She'll be provided with Flexeril to help with severe pain and discomfort muscle spasms she was instructed this medication will cause drowsiness do not take any be alert and oriented. Patient will be discharged home in stable condition. Patient was provided with signs and symptoms to return back to emergency department. [] Dragon Disclaimer Dragon Disclaimer This electronic medical record was generated, in whole or in part, using a voice recognition dictation system. Departure Departure Impression: Primary Impression: Back pain Disposition: HOME, SELF-CARE Condition: STABLE Referrals: RAFAEL BENAVIDES (PCP) Patient Instructions: Back Pain, Adult, [id number] Additional Instructions: Activity as tolerated. Continue her home medications for pain and discomfort. Flexeril will be added to help with muscle spasms and discomfort. This medication will cause drowsiness do not take any be alert and oriented. Steroids will also be added to help with inflammation. Follow-up to primary care physician in the next 5-7 days. Return back to emergency prior signs symptoms of become worse. Scripts Prednisone (PREDNISONE) 20 Mg Tablet 40 MG PO DAILY, #14 TAB Prov: SUZANNE LOPEZ [employer] OPERATOR 08/04/16 Cyclobenzaprine Hcl (CYCLOBENZAPRINE HCL) 10 Mg Tablet 10 MG PO TID, #20 TAB Prov: SUZANNE LOPEZ [employer]AD[employer] UNDERWE[employer] OPERATOR 08/04/16 SUZANNE LOPEZ [employer]ADIES UNDERWEAR OPERATOR August 04, 2016 19:13
[2016-08-04 19:31] LABS: BASO # 0.1 x10^3/uL (0.0-0.2); BASO % 1 % (0-3); EOS % 2 % (0-3); HEMATOCRIT 42.9 % (36.0-47.0); HEMOGLOBIN 14.8 g/dL (12.0-15.5); LYMPH # 2.4 x10^3/uL (1.0-4.8); LYMPH % 24 % (24-48); MEAN CORPUSCULAR HEMOGLOBIN 28 pg (25-35); MEAN CORPUSCULAR HGB CONC 34 g/dL (31-37); MEAN CORPUSCULAR VOLUME 81 fL (79-100); MONO % 8 % (0-9); NEUT % 66 % (31-73); PLATELET COUNT 328 x10^3/uL (140-400); RED CELL DISTRIBUTION WIDTH 14.4 % (11.5-14.5); WHITE BLOOD COUNT 9.9 x10^3/uL (4.0-11.0)
[2016-08-04 19:42] LABS: CALCIUM 9.3 mg/dL (8.5-10.1); CREATININE 0.9 mg/dL (0.6-1.0); GFR 70.1; POTASSIUM 3.3 mmol/L (3.5-5.1)
[2016-08-04 19:48] LABS: ALBUMIN 3.6 g/dL (3.4-5.0); ALBUMIN/GLOBULIN RATIO 0.8 (1.0-1.7); TOTAL BILIRUBIN 0.4 mg/dL (0.2-1.0); TOTAL PROTEIN 8.1 g/dL (6.4-8.2)
[2016-08-04] MEDS ORDERED: CYCL10TA2 PO (20:05)
[2016-08-04] MEDS ORDERED: PRED20TA PO (20:05)
--- NOTE | 2016-08-05 09:41 | EKG ---
[facility] [address] [place] [address] Test Date: 2016-08-04 Test Time: 18:57:06 Pat Name: KANG CH Department: Room: Gender: F [employer] K[employer] Tender: : 1980 Requested By: SUZANNE LOPEZ Order Number: [id number] Reading MD: aDvid Luna Measurements Intervals [place] Rate: 90 P: 40 NH: 164 QRS: 16 QRSD: 80 T: 19 QT: 368 QTc: 454 Interpretive Statements SINUS RHYTHM Electronically Signed On 08-09-2016 9:27:36 CDT by David Luna
--- NOTE | 2016-08-05 09:41 | RAD ---
Exam performed: 2 views of the chest. Indication: right upper chest pain Date of Service:08/04/2016 8:46 PM . Comparison : 2 view chest from 06/23/16 Findings: PA and lateral radiographs of the chest reveal a normal cardiomediastinal contour. The lungs are clear. No pleural fluid is seen. The visualized osseous structures are unremarkable. Impression: Radiographically normal chest.
== END 2016-08-04 20:36 | disposition home or self-care (01) ==
LOC: ER 17:43
DX: M54.89 Other dorsalgia (principal); F41.9 Anxiety disorder, unspecified; M19.90 Unspecified osteoarthritis, unspecified site; J45.909 Unspecified asthma, uncomplicated; F32.9 Major depressive disorder, single episode, unspecified; M79.7 Fibromyalgia; I10 Essential (primary) hypertension; G43.909 Migraine, unspecified, not intractable, without status migrainosus; Z88.6 Allergy status to analgesic agent; Z88.1 Allergy status to other antibiotic agents; Z91.040 Latex allergy status; Z88.5 Allergy status to narcotic agent; Z88.8 Allergy status to other drugs, medicaments and biological substances; Z91.048 Other nonmedicinal substance allergy status
CPT/HCPCS: 36415; 71020; 80053; 85027; 93005; 96372; 99285; J2930

== ENCOUNTER 2017-03-26 10:08 | Emergency (ER) | payer OTHER | END 2017-03-26 10:42 | disposition home or self-care (01) | LOC: ER 10:08 | DX: M94.0 Chondrocostal junction syndrome [Tietze] (principal); I10 Essential (primary) hypertension; M19.90 Unspecified osteoarthritis, unspecified site; J45.909 Unspecified asthma, uncomplicated; M79.7 Fibromyalgia; Z88.1 Allergy status to other antibiotic agents; Z91.040 Latex allergy status; Z88.5 Allergy status to narcotic agent; Z88.8 Allergy status to other drugs, medicaments and biological substances | CPT/HCPCS: 93005; 99283 ==

== ENCOUNTER 2017-04-20 11:41 | Emergency (ER) | payer OTHER ==
[2017-04-20] MEDS: IBUPROFEN 800 MG TABLET. PO (12:15)
[2017-04-20] MEDS: ONDANSETRON ODT 4 MG TAB.RAPDIS. PO (12:15)
[2017-04-20 12:43] LABS: INFLUENZA A PATIENT NEGATIVE (NEGATIVE); INFLUENZA B PATIENT NEGATIVE (NEGATIVE); OBC FLU VALID
== END 2017-04-20 13:09 | disposition home or self-care (01) ==
LOC: ER 11:41
DX: B34.9 Viral infection, unspecified (principal); M79.7 Fibromyalgia; G43.909 Migraine, unspecified, not intractable, without status migrainosus; I10 Essential (primary) hypertension; J45.909 Unspecified asthma, uncomplicated; Z88.1 Allergy status to other antibiotic agents; Z88.5 Allergy status to narcotic agent; Z88.8 Allergy status to other drugs, medicaments and biological substances; Z91.040 Latex allergy status
CPT/HCPCS: 71046; 87804; 87804-59; 99285-25; Q0162

== ENCOUNTER 2017-04-25 10:52 | Emergency (ER) | payer OTHER | END 2017-04-25 11:45 | disposition home or self-care (01) | LOC: ER 10:52 | DX: J06.9 Acute upper respiratory infection, unspecified (principal); F17.200 Nicotine dependence, unspecified, uncomplicated; J45.909 Unspecified asthma, uncomplicated; I10 Essential (primary) hypertension; G43.909 Migraine, unspecified, not intractable, without status migrainosus; M79.7 Fibromyalgia; Z88.1 Allergy status to other antibiotic agents; Z88.6 Allergy status to analgesic agent; Z88.5 Allergy status to narcotic agent; Z91.040 Latex allergy status | CPT/HCPCS: 99283 ==

== ENCOUNTER 2017-05-18 14:52 | Emergency (ER) | payer OTHER ==
[2017-05-18] MEDS: ACETAMINOPHEN 500 MG TABLET PO ×2 (15:30)
== END 2017-05-18 15:49 | disposition home or self-care (01) ==
LOC: ER 14:52
DX: M79.662 Pain in left lower leg (principal); M19.90 Unspecified osteoarthritis, unspecified site; J45.909 Unspecified asthma, uncomplicated; M79.7 Fibromyalgia; I10 Essential (primary) hypertension; G43.909 Migraine, unspecified, not intractable, without status migrainosus; Z88.6 Allergy status to analgesic agent; Z88.1 Allergy status to other antibiotic agents; Z91.040 Latex allergy status; Z88.5 Allergy status to narcotic agent; Z91.048 Other nonmedicinal substance allergy status; W00.0XXA Fall on same level due to ice and snow, initial encounter; Y93.89 Activity, other specified; Y92.89 Other specified places as the place of occurrence of the external cause; Y99.8 Other external cause status
CPT/HCPCS: 73590; 99284